=== PATIENT | female | born 1990 | race Caucasian/White ===

== ENCOUNTER 2019-07-24 19:49 | Emergency (ER) | payer OTHER ==
[~2019-07-24] VITALS: Ht 152.4 cm; Wt 72.6 kg
== END 2019-07-24 21:59 | disposition home or self-care (01) ==
LOC: ER 19:49
DX: J11.1 Influenza due to unidentified influenza virus with other respiratory manifestations (principal); G43.109 Migraine with aura, not intractable, without status migrainosus; Z88.6 Allergy status to analgesic agent; Z88.5 Allergy status to narcotic agent
CPT/HCPCS: 96372; 99283-25; J0780; J1885; Q0163

== ENCOUNTER → 2023-12-23 | Outpatient (CLI) | payer OTHER ==
[2023-12-23 12:18] LABS: BASOPHILS ABSOLUTE AUTO 0.06 K/mm3 (0.00-0.23); BASOPHILS PERCENT AUTO 1 % (0-2); EOSINOPHILS ABSOLUTE AUTO 0.17 K/mm3 (0.00-0.68); EOSINOPHILS PERCENT AUTO 2 % (0-6); Hemoglobin 13.7 g/dL (11.5-16.0); IMMATURE GRAN ABSOLUTE AUTO 0.05 K/mm3 (0.00-0.10); IMMATURE GRAN PERCENT AUTO 0 % (0-1); LYMPHOCYTES PERCENT AUTO 23 % (21-46); MONOCYTES ABSOLUTE AUTO 0.59 K/mm3 (0.16-1.47); MONOCYTES PERCENT AUTO 5 % (4-13); Mean Corpuscular HGB Conc 32.6 g/dL (31.5-36.5); Mean Corpuscular Volume 89 fL (80-100); Mean Platelet Volume 9.8 fL (9.1-12.4); NEUTROPHILS ABSOLUTE AUTO 7.93 K/mm3 (1.96-9.15); NEUTROPHILS PERCENT AUTO 70 % (41-73); Platelet Count 324 K/mm3 (150-400); RDW Coefficient Variation 12.9 % (11.7-14.2); RDW Standard Deviation 42.3 fL (35.1-46.3); Red Blood Cell Count 4.72 M/mm3 (3.80-5.20)
[2023-12-23 12:35] LABS: Albumin, Blood 3.7 g/dL (3.4-5.0); Albumin/Globulin Ratio 0.9 (0.8-1.8); Bilirubin, Total 0.3 mg/dL (0.1-1.0); Bun/Creatinine Ratio 34.4 (12.0-20.0); Calcium, Blood 9.1 mg/dL (8.5-10.1); Creatinine, Blood 0.61 mg/dL (0.40-1.00); Globulin, Blood 4.2 g/dL (2.2-4.0); Potassium, Blood 4.2 mmol/L (3.5-5.5); Total Protein, Blood 7.9 g/dL (6.4-8.2)
== END ==
LOC: LAB SHORT 10:24 → LAB 10:24
PROVIDERS: Student in an Organized Health Care Education/Training Program
DX: J20.9 Acute bronchitis, unspecified (principal)
CPT/HCPCS: 80053; 85025

== ENCOUNTER 2024-03-29 06:18 | Day surgery (SDC) | payer OTHER ==
[~2024-03-29] VITALS: Ht 152.4 cm; Wt 98.1 kg
[2024-03-29] MEDS ORDERED: Amitriptyline H10 MG PO (06:41)
[2024-03-29] MEDS ORDERED: Ativan1 MG (06:42)
[2024-03-29] MEDS ORDERED: BUSPIRONE HCL5 M6 PO (06:42)
[2024-03-29] MEDS ORDERED: LURASIDONE HCL40 MG PO (06:42)
[2024-03-29] MEDS ORDERED: LURASIDONE HCL60 MG PO (06:42)
[2024-03-29] MEDS ORDERED: ALBU90OI INH (06:46)
[2024-03-29] MEDS ORDERED: Ropivacaine 0.5% HCL/PF 5 MG/ML 30ML Vial ONE (06:56)
[2024-03-29] MEDS ORDERED: Lactated Ringer's 1,000 ML IV ONE (06:57)
[2024-03-29 06:58] VITALS: BP 96/69
[2024-03-29] MEDS ORDERED: propofoL 0 ML IV ONE (07:00)
[2024-03-29] MEDS ORDERED: Bupivacaine 0.5% HCl 5 MG/ML 30MLVIAL INJ ONE (07:14)
[2024-03-29] MEDS ORDERED: EPINEPhrine HCl 1 MG/ML 1ML Amp XX ONE (07:17)
--- NOTE | 2024-03-29 07:39 | NUR ---
03/29/24 0739 Nikole Soliman PATIENT REPORTED THAT SHE WAS EVALUATED AT [facility] LAST WEEK (DOES NOT REMEMBER WHICH DAY) AND WAS DIAGNOSED WITH RHINOVIRUS. STATES SHE HAD RUNNY NOSE AND COUGH. DENIES FEVER. PT REPORTS THAT SHE FELT THAT THE COUGH WAS RELATED TO SINUS DRAINAGE. USED ALBUTEROL INHALER LAST WEEK ON MONDAY. SHE REPORTED THAT COUGH HAD PRETTY MUCH RESOLVED BUT STILL HAS A RUNNY NOSE. SAW HER PCP YESTERDAY AND SHE STATES HE TOLD HER SHE SOUNDED MUCH BETTER. ABOVE REPORTED TO DR SIMONS PRIOR TO HIM GOING IN TO SEE PATIENT AND ALSO DR GAMEZ ADVISED. AFTER CONSULT WITH PATIENT, IT WAS ELECTED THAT PT'S SURGERY SHOULD BE POSTPONED UNTIL ALL SYMPTOMS HAVE RESOLVED. WHEN PT'S ABDOMEN WAS BEING SAGED, DEANGELO ALDANA NOTED THAT PATIENT HAD A RASH IN THE ABDOMINAL FOLDS THAT LOOKED AND SMELLED LIKE A POSSIBLE YEAST INFECTION. DEANGELO ALDANA NOTIFIED DR GAMEZ OF THIS AND THIS RN ALSO ADVISED PATIENT TO HAVE THIS EVALUATED BY PCP IF IT IS A YEAST INFECTION NYSTATIN POWDER MAY BE BENEFICIAL. PT VERBALIZED UNDERSTANDING.
[2024-03-29] MEDS ORDERED: Lactated Ringer's 0 ML IV ONE (07:40)
== END 2024-03-29 07:25 | disposition home or self-care (01) ==
LOC: ORSCSDS 06:18
DX: Z30.2 Encounter for sterilization (principal); Z53.9 Procedure and treatment not carried out, unspecified reason
CPT/HCPCS: J0171; J2704; J2795; J7120

== ENCOUNTER 2024-04-25 17:46 | Emergency (ER) | payer OTHER ==
[~2024-04-25] VITALS: Ht 152.4 cm; Wt 90.7 kg
[~2024-04-25 17:46] MED LIST: ALBU90OI INH; Amitriptyline H10 MG PO; Ativan1 MG; BUSPIRONE HCL5 M6 PO; LURASIDONE HCL40 MG PO; LURASIDONE HCL60 MG PO
[2024-04-25 18:22] LABS: BASOPHILS ABSOLUTE AUTO 0.04 K/mm3 (0.00-0.23); BASOPHILS PERCENT AUTO 0 % (0-2); EOSINOPHILS PERCENT AUTO 1 % (0-6); Hemoglobin 13.6 g/dL (11.5-16.0); IMMATURE GRAN ABSOLUTE AUTO 0.04 K/mm3 (0.00-0.10); IMMATURE GRAN PERCENT AUTO 0 % (0-1); LYMPHOCYTES ABSOLUTE AUTO 2.97 K/mm3 (0.84-5.20); LYMPHOCYTES PERCENT AUTO 25 % (21-46); MONOCYTES ABSOLUTE AUTO 0.56 K/mm3 (0.16-1.47); MONOCYTES PERCENT AUTO 5 % (4-13); Mean Corpuscular HGB 29.8 pg (26.0-34.0); Mean Corpuscular Volume 88 fL (80-100); Mean Platelet Volume 9.7 fL (9.1-12.4); NEUTROPHILS ABSOLUTE AUTO 8.24 K/mm3 (1.96-9.15); NEUTROPHILS PERCENT AUTO 69 % (41-73); Platelet Count 295 K/mm3 (150-400); RDW Coefficient Variation 13.4 % (11.7-14.2); RDW Standard Deviation 43.4 fL (35.1-46.3); Red Blood Cell Count 4.56 M/mm3 (3.80-5.20); White Blood Cell Count 11.95 K/mm3 (4.00-11.30)
[2024-04-25 19:00] LABS: Albumin, Blood 3.7 g/dL (3.4-5.0); Albumin/Globulin Ratio 0.9 (0.8-1.8); Bilirubin, Total 0.4 mg/dL (0.1-1.0); Bun/Creatinine Ratio 17.3 (12.0-20.0); Calcium, Blood 9.4 mg/dL (8.5-10.1); Creatinine, Blood 0.7 mg/dL (0.40-1.00); Globulin, Blood 4.1 g/dL (2.2-4.0); Potassium, Blood 3.8 mmol/L (3.5-5.5); Total Protein, Blood 7.8 g/dL (6.4-8.2)
[2024-04-25] MEDS ORDERED: LITH300C PO (21:49)
[2024-04-25 22:48] LABS: Source, Urine Clean Catch
[2024-04-25 22:51] LABS: Bilirubin, Urine Neg (Neg); Blood, Urine Neg (Neg); Glucose Qualitative, Urine Neg (Neg); Ketones, Urine 1+ (Neg); Leukocyte Esterase, Urine Neg (Neg); Nitrite, Urine Neg (Neg); Protein, Urine 1+ (Neg); Urobilinogen, Urine NORM (Normal)
[2024-04-25 23:02] LABS: Appearance, Urine Clear (Clear); Color, Urine Pale Yellow (P-Yellow)
[2024-04-26 02:00] VITALS: BP 110/72
== END 2024-04-26 02:12 | disposition home or self-care (01) ==
LOC: ER 17:46
PROVIDERS: Student in an Organized Health Care Education/Training Program
DX: N83.201 Unspecified ovarian cyst, right side (principal); Z79.899 Other long term (current) drug therapy; Z88.5 Allergy status to narcotic agent; Z88.8 Allergy status to other drugs, medicaments and biological substances
CPT/HCPCS: 74177; 80053; 83690; 84703; 85025; 99284-25; Q9967

== ENCOUNTER → 2024-05-21 | Outpatient (CLI) | payer OTHER ==
[~2024-05-21] MED LIST changes: +LITH300C PO
[2024-05-22 12:33] LABS: Bacterial Vaginosis PCR Negative (NEGATIVE); Candida Group, PCR NOT DETECTED (NOT DETECT); Candida glabrata-krusei, PCR NOT DETECTED (NOT DETECT)
== END ==
LOC: LAB SHORT 18:01 → LAB 18:01
PROVIDERS: Nurse Practitioner Family
DX: R10.2 Pelvic and perineal pain (principal)
CPT/HCPCS: 87481; 87661; 87801

== ENCOUNTER → 2025-06-18 | Outpatient (CLI) | payer OTHER ==
[2025-06-18 13:34] LABS: BASOPHILS ABSOLUTE AUTO 0.05 K/mm3 (0.00-0.23); BASOPHILS PERCENT AUTO 1 % (0-2); EOSINOPHILS ABSOLUTE AUTO 0.10 K/mm3 (0.00-0.68); EOSINOPHILS PERCENT AUTO 1 % (0-6); Hematocrit 39.8 % (33.0-51.0); Hemoglobin 13.3 g/dL (11.5-16.0); IMMATURE GRAN ABSOLUTE AUTO 0.03 K/mm3 (0.00-0.10); IMMATURE GRAN PERCENT AUTO 0 % (0-1); LYMPHOCYTES ABSOLUTE AUTO 2.44 K/mm3 (0.84-5.20); LYMPHOCYTES PERCENT AUTO 23 % (21-46); MONOCYTES ABSOLUTE AUTO 0.59 K/mm3 (0.16-1.47); MONOCYTES PERCENT AUTO 6 % (4-13); Mean Corpuscular HGB Conc 33.4 g/dL (31.5-36.5); Mean Corpuscular Volume 88 fL (80-100); NEUTROPHILS ABSOLUTE AUTO 7.57 K/mm3 (1.96-9.15); NEUTROPHILS PERCENT AUTO 70 % (41-73); NRBC ABSOLUTE 0.00 K/mm3 (0.00-0.02); NRBC Auto 0.0 /100 WBC (0.0-0.2); Platelet Count 295 K/mm3 (150-400); RDW Coefficient Variation 12.8 % (11.7-14.2); RDW Standard Deviation 41.5 fL (35.1-46.3)
[2025-06-18 13:48] LABS: Lithium <0.20 mmol/L (0.60-1.20)
[2025-06-18 18:08] LABS: Alanine Aminotransfer (ALT/SGP 31.0 U/L (12-78); Albumin, Blood 3.5 g/dL (3.4-5.0); Albumin/Globulin Ratio 0.9 (0.8-1.8); Anion Gap 7.0 mmol/L (3-11); Aspartate Aminotrans (AST/SGOT 16.0 U/L (12-37); Bilirubin, Total 0.2 mg/dL (0.1-1.0); Blood Urea Nitrogen 13.0 mg/dL (8-24); CO2, Blood 23.0 mmol/L (21-32); Calcium, Blood 8.7 mg/dL (8.5-10.1); Chloride, Blood 108.0 mmol/L (98-108); Creatinine, Blood 0.68 mg/dL (0.40-1.00); Globulin, Blood 3.8 g/dL (2.2-4.0); Glucose, Blood 107.0 mg/dL (70-99); Potassium, Blood 4.0 mmol/L (3.5-5.5); Sodium, Blood 134.0 mmol/L (136-145); Thyroid Stimulating Hormone 0.826 uIU/mL (0.360-4.800); Total Protein, Blood 7.3 g/dL (6.4-8.2)
== END ==
LOC: LAB 11:57 → LAB SHORT 11:57
PROVIDERS: Nurse Practitioner Psychiatric/Mental Health
DX: F31.81 Bipolar II disorder (principal)
CPT/HCPCS: 80053; 80178; 84443; 85025